=== PATIENT | female | born 1950 | race Caucasian/White ===

== ENCOUNTER 2016-11-05 11:51 | Emergency (ER) | payer MEDICAID, OTHER ==
[~2016-11-05] VITALS: Ht 152.4 cm; Wt 68.2 kg
[~2016-11-05 11:51] MED LIST: AZIT250T94 PO; UDROBDM PO
[2016-11-05] MEDS ORDERED: SOD CHLORIDE 0.9% 500 ML IV STA (12:13)
[2016-11-05] MEDS ORDERED: KETOROLAC 15 MG INJ IV STA (12:13)
[2016-11-05 12:15] VITALS: Ht 152.4 cm; Wt 68.2 kg
[2016-11-05] MEDS ORDERED: LORAZEPAM 2 MG INJ IV ONE (12:30)
--- NOTE | 2016-11-05 14:03 | RADRPT ---
PROCEDURE: XR Chest. CLINICAL INDICATION: trauma TECHNIQUE: Single frontal chest x-ray. COMPARISON: None. FINDINGS: There is minimal prominence of the lung interstitium likely minimal chronic changes.. The heart is not enlarged. Artifact from brassiere, safety pin and ECG leads are projected over the chest. Calc ification in the aortic arch. Degenerative changes in thoracic spine.. IMPRESSION: 1. There is no acute cardiopulmonary process. RPTAT: HJES .Richard Botello MD, MD Date Time Electronically viewed and signed by .Richard Botello MD, MD on 11/05/2016 14:03 .S/
--- NOTE | 2016-11-05 14:05 | RADRPT ---
PROCEDURE: Pelvis x-ray CLINICAL INDICATION: trauma TECHNIQUE: Single AP view of the pelvis performed. COMPARISON: None FINDINGS: Normal mineralization, architecture and alignment. No fracture or osseous lesion identified. There are no significant degenerative changes. Unremarkable soft tissues. IMPRESSION: No acute fracture or subluxation. RPTAT:AAJJ Paul Willis Physician Date Time Electronically viewed and signed by Paul Willis Physician on 11/05/2016 14:05 LUX/
--- NOTE | 2016-11-05 14:06 | RADRPT ---
PROCEDURE: XR left shoulder. CLINICAL INDICATION: trauma TECHNIQUE: AP, Internal and external rotation views of the left shoulder were performed. COMPARISON: None. FINDINGS: There is normal osseous mineralization and alignment. No acute fracture or osseous lesion is identified. There are normal joints without evidence of arthritis or dislocation. Minimal degenerative change of the acromioclavicular joint. The soft tissues are unremarkable. IMPRESSION: Unremarkable left shoulder. RPTAT:AAJJ Physician Vannessa Date Time Electronically viewed and signed by Physician Vannessa on 11/05/2016 14:06 LUX/
--- NOTE | 2016-11-05 14:21 | RADRPT ---
PROCEDURE: CT Brain without contrast. CLINICAL INDICATION: Fall. Intracranial hemorrhage. TECHNIQUE: A multiplanar CT of the brain was performed on a CT scanner utilizing axial imaging fro m the skull base through the vertex without IV contrast. The CTDIvol is 44.77 mGy and the DLP is 63 0.20 mGycm. One or more of the following dose reduction techniques were utilized: Automated exposu re control, adjustment of the mA and/or kV according to patient size, use of iterative reconstructio n technique. COMPARISON: Rule FINDINGS: No evidence of intracranial hemorrhage or abnormal extra-axial fluid collection. The brain parenchyma is normal attenuation morphology with preservation of byrne white differentiatio n and age appropriate size of the ventricles and subarachnoid spaces. The posterior fossa contents, brainstem, craniocervical junction, orbits, pituitary axis, paranasal sinuses, mastoid air cells, and calvarium are unremarkable. IMPRESSION: 1. No intracranial hemorrhage or acute intracranial. RPTAT:AAJJ Physician Vannessa Date Time Electronically viewed and signed by Physician Vannessa on 11/05/2016 14:21 LUX/
--- NOTE | 2016-11-05 14:24 | RADRPT ---
PROCEDURE: XR right shoulder. CLINICAL INDICATION: trauma TECHNIQUE: AP Internal and external rotation views of the right shoulder were performed. COMPARISON: None. FINDINGS: There is normal osseous mineralization and alignment. No acute fracture or osseous lesion is identified. Mild degenerative changes of the AC joint are not ed. The glenohumeral joint is unremarkable. The soft tissues are unremarkable. IMPRESSION: Unremarkable right shoulder. RPTAT:AAJJ Physician Vannessa Date Time Electronically viewed and signed by Physician Vannessa on 11/05/2016 14:24 LUX/
[2016-11-05 14:41] LABS: BASOPHILS % 0.3 % (0.0-2.0); EOSINOPHILS # 0.1 10^3/ul (0.0-0.5); EOSINOPHILS % 0.6 % (0.0-7.0); HEMATOCRIT 37.7 % (37.0-47.0); HEMOGLOBIN 12.9 g/dl (12.0-16.0); LYMPHOCYTES # 1.6 10^3/ul (0.8-2.9); LYMPHOCYTES % 14.9 % (15.0-51.0); MEAN CORPUSCULAR HEMOGLOBIN 30.5 pg (29.0-33.0); MEAN CORPUSCULAR HGB CONC 34.2 g/dl (32.0-37.0); MEAN PLATELET VOLUME 9.1 fl (7.4-10.4); MONOCYTE # 0.5 10^3/ul (0.3-0.9); MONOCYTES % 4.7 % (0.0-11.0); NEUTROPHIL # 8.6 10^3/ul (1.6-7.5); NEUTROPHILS % 79.5 % (39.0-77.0); PLATELET COUNT 215 10^3/UL (140-440); RED BLOOD COUNT 4.23 10^6/ul (4.20-5.40); RED CELL DISTRIBUTION WIDTH 12.8 % (11.5-14.5); UNCORRECTED WBC 10.8 10^3/ul (4.8-10.8); WHITE BLOOD COUNT 10.8 10^3/ul (4.8-10.8)
--- NOTE | 2016-11-05 14:42 | RADRPT ---
PROCEDURE: CT Cervical Spine without contrast. CLINICAL INDICATION: Trauma. Neck pain. TECHNIQUE: A CT of the cervical spine was performed on a CT scanner utilizing thin section axial images from the skull base through the thoracic inlet. Sagittal and coronal reformatted images were made. The CTDIvol is 22.17 mGy and the DLP is 454.36 mGycm. Automated exposure control, adjustment of the mA and/or kV according to patient size, use of iterative reconstruction technique. COMPARISON: No prior studies are available for comparison. FINDINGS: Reversal of the normal cervical lordosis. No vertebral body subluxation is seen. No fracture is evid ent. C2-3: The disc is normal in height. No significant disk bulge or protrusion is evident. There is no central canal stenosis or foraminal narrowing. C3-4: The disc is normal in height. Posterior spondylitic ridging and endplate sclerosis asymmetric to the right with bilateral uncinate process hypertrophy. Mild anterior endplate spurring. Mild ri ght foraminal stenosis. No significant disk bulge or protrusion is evident. No left foraminal or evelin tral canal stenosis. C4-5: The disc is normal in height. Subchondral endplate sclerosis and uncinate process hypertrophy asymmetric to the right resulting in mild right foraminal stenosis. Moderate right facet joint arth ropathy. No central canal or left foraminal stenosis. No disk bulge or protrusion. C5-6: The disc is normal in height. Degenerative endplate sclerosis, endplate spurring and posterior spondylitic ridging with right uncinate process hypertrophy asymmetric to the right resulting in mi ld right foraminal stenosis. No significant disk bulge or protrusion is evident. No left foraminal o r central canal stenosis. C6-7: The disc is normal in height. Degenerative endplate sclerosis, anterior endplate spurring and posterior spondylitic ridging with right uncinate process hypertrophy. No significant disk bulge o r protrusion is evident. There is no central canal stenosis or foraminal narrowing. C7-T1: The disc is normal in height. No significant disk bulge or protrusion is evident. There is no central canal stenosis or foraminal narrowing. The lung apices are clear. No paravertebral soft tissue abnormality is seen. IMPRESSION: 1. No fracture or dislocation. No soft tissue abnormality. 2. Mild multilevel degenerative endplate sclerosis and spondylosis resulting in mild multilevel of r ight foraminal stenosis as described above. No central canal or left foraminal stenosis at any leve l. RPTAT:AAJJ Paul Willis Physician Date Time Electronically viewed and signed by Paul Willis Physician on 11/05/2016 14:42 LUX/
[2016-11-05] MEDS ORDERED: NAPR-260 PO (14:43)
[2016-11-05 14:45] LABS: CONDITION 1
--- NOTE | 2016-11-05 14:50 | ERD ---
ER Documentation Chief Complaint Date/Time DATE: 11/05/16 TIME: 14:46 Chief Complaint BROUGHT IN VIA EMS DUE TO FALL BY STEPPING ON DOG HPI 65-year-old woman brought in by EMS after ground-level fall due to tripping over a small dog. She complains of neck and back pain as well as bilateral shoulder pain. Patient was ambulatory at the scene and denied neurologic deficits. She has had no paresis or paresthesias, no chest pain or shortness of breath, no loss of consciousness. Per protocol patient was placed in a rigid cervical spine collar and transported here without difficulty. ROS All systems reviewed and are negative except as per history of present illness. Medications Home Meds Active Scripts Naproxen* (Naprosyn*) 500 Mg Tablet, 500 MG PO BID Y for PAIN AND/OR INFLAMMATION, #15 TAB Prov:MARJORIE LEE MD 11/05/16 Allergies Allergies: Coded Allergies: No Known Allergy (Unverified , 11/05/16) PMhx/Soc Arthritis, anxiety Hx Alcohol Use: No Hx Substance Use: No Hx Tobacco Use: No Smoking Status: Never smoker FmHx Family History: No diabetes Physical Exam Vitals Vital Signs Date Time Temp Pulse Resp B/P Pulse Ox O2 Delivery O2 Flow Rate FiO2 11/05/16 15:21 89 18 134/70 99 Room Air 11/05/16 12:15 98.5 82 18 136/94 97 Physical Exam GENERAL: Well-developed, well-nourished, severely anxious, neck is secure in a rigid cervical spine collar HEENT: Moist mucous membranes, pink conjunctiva, no cervical spine tenderness or step-off deformities, no goiter, no jaundice or icterus, extraocular movements intact without pain. No submandibular induration, and no pharyngeal erythema NEURO: Alert and oriented 3, cranial nerves II through XII intact bilaterally, pupils equal round reactive to light, no focal deficits or facial asymmetry, sensation intact distally Strength 5/5 in upper and lower extremities bilaterally CARDIAC: Regular rate and rhythm, no murmurs rubs or gallops LUNGS: Clear bilaterally no wheezing crackles or stridor ABDOMEN: Soft nontender, no guarding, no rigidity, no rebound, no psoas sign no obturator sign. Normoactive bowel sounds SKIN: Warm and dry to touch, no abrasions, contusions, or hematomas, no lacerations, no ecchymosis, no target lesions, and without ulcers EXTREMITIES: No clubbing cyanosis or edema, calves are bilaterally symmetrical, no Homans sign, no popliteal cord sign. Distal pulses equal and bilateral PSYCH: Severely anxious Result Diagram: 11/05/16 1430 11/05/16 1430 Results 24 hrs Laboratory Tests Test 11/05/16 14:30 Alanine Aminotransferase (ALT/SGPT) 35IU/L Albumin 3.9g/dl Albumin/Globulin Ratio 1.14 Alkaline Phosphatase 100IU/L Anion Gap 16 Aspartate Amino Transf (AST/SGOT) 24IU/L Basophils # 0.010^3/ul Basophils % 0.3% Blood Urea Nitrogen 15mg/dl Calcium Level 9.2mg/dl Carbon Dioxide Level 25mmol/L Chloride Level 106mmol/L Creatinine 0.70mg/dl Direct Bilirubin 0.00mg/dl Eosinophils # 0.110^3/ul Eosinophils % 0.6% Globulin 3.40g/dl Glucose Level 151mg/dl Hematocrit 37.7% Hemoglobin 12.9g/dl Indirect Bilirubin 0.3mg/dl Lipase 106U/L Lymphocytes # 1.610^3/ul Lymphocytes % 14.9% Mean Corpuscular Hemoglobin 30.5pg Mean Corpuscular Hemoglobin Concent 34.2g/dl Mean Corpuscular Volume 89.0fl Mean Platelet Volume 9.1fl Monocytes # 0.510^3/ul Monocytes % 4.7% Neutrophils # 8.610^3/ul Neutrophils % 79.5% Nucleated Red Blood Cells # 0.010^3/ul Nucleated Red Blood Cells % 0.0/100WBC Platelet Count 27823^3/UL Potassium Level 3.9mmol/L Red Blood Count 4.2310^6/ul Red Cell Distribution Width 12.8% Sodium Level 143mmol/L Total Bilirubin 0.3mg/dl Total Protein 7.3g/dl Troponin I < 0.012ng/ml White Blood Count 10.810^3/ul Current Medications Medications (Trade) Dose Ordered Sig/Alexi Route PRN Reason Start Time Stop Time Status Last Admin Dose Admin Lorazepam (Ativan) 0.5 mg ONCE ONCE IV 11/05/16 12:30 11/05/16 12:31 DC 11/05/16 13:14 Ketorolac Tromethamine 15 mg 15 mg ONCE STAT IV 11/05/16 12:13 11/05/16 12:17 DC 11/05/16 13:14 Sodium Chloride (NS) 500 ml @ 500 mls/hr Q1H STAT IV 11/05/16 12:13 11/05/16 13:12 DC 11/05/16 12:13 Procedures/MDM IV line was established patient was placed on hat presser rhythm strip revealed a sinus rhythm at about 70 bpm with upright P and T waves. EKG performed, read by me: 68 bpm, normal sinus rhythm, normal axis, no acute ST segment changes, narrow QRS complex, with good R-wave progression in precordial leads. I administered 500 cc normal saline intravenously, lorazepam 0.5 mg IV for severe anxiety, Toradol 15 mg IV with good pain control. One AP view of the chest performed, read by me reveals no acute infiltrates, normal mediastinum, sharp costophrenic and cardiac borders, no air under the diaphragm. Otherwise unremarkable chest x-ray. CT scan of the brain was negative for acute bleed mass or shift. CT scan of the cervical spine was performed and was negative for acute fracture or dislocation X-ray Pelvis 1V Interpreted by me: Bones: No fracture Joints: No dislocation Foreign body: None X-ray right shoulder 3V Interpreted by me: Bones: No fracture Joints: No dislocation Foreign body: None X-ray left shoulder 3V Interpreted by me: Bones: No fracture Joints: No dislocation Foreign body: None Differential diagnoses considered, included but not limited to acute coronary syndrome, pulmonary embolism, aortic dissection, abdominal aortic aneurysm, sepsis, stroke, meningitis, encephalitis, pneumonia, appendicitis, cholecystitis , bowel obstruction, pyelonephritis, nephrolithiasis, cystitis, as well as metabolic, hematologic, and electrolyte abnormalities. As well as abscess, cellulitis, fractures, and dislocations. Patient feels much better at this time, and vital signs are normal, symptoms have improved. I did give strict instructions to return to the ED if symptoms continue or worsen, patient will otherwise follow-up with primary care physician. Patient understood instructions and agreed to plan. Departure Diagnosis: Primary Impression: Fall with no significant injury Encounter type: initial encounter Qualified Code: W19.XXXA - Fall with no significant injury, initial encounter Additional Impressions: Acute neck sprain Encounter type: initial encounter Qualified Code: S13.9XXA - Acute neck sprain, initial encounter Anxiety Condition: Good Patient Instructions: Neck Sprain/Strain, Fall Prevention Referrals: NO PRIMARY,CARE PHYSICIAN (PCP) MARJORIE LEE MD Nov 05, 2016 14:50
[2016-11-05 14:52] LABS: ALBUMIN 3.9 g/dl (3.3-4.9); CHLORIDE 106 mmol/L (97-110); SODIUM 143 mmol/L (135-144)
[2016-11-05 14:53] LABS: POTASSIUM 3.9 mmol/L (3.5-5.1)
[2016-11-05 14:55] LABS: ALANINE AMINOTRANSFERASE 35 IU/L (13-69); ALBUMIN/GLOBULIN RATIO 1.14; ALKALINE PHOSPHATASE 100 IU/L (42-121); ANION GAP 16 (8-16); ASPARTATE AMINO TRANSFERASE 24 IU/L (15-46); BILIRUBIN,INDIRECT 0.3 mg/dl (0-1.1); BILIRUBIN,TOTAL 0.3 mg/dl (0.2-1.3); BLOOD UREA NITROGEN 15 mg/dl (7-20); CALCIUM 9.2 mg/dl (8.4-10.2); CARBON DIOXIDE 25 mmol/L (21-31); GLUCOSE 151 mg/dl (70-220); TOTAL PROTEIN 7.3 g/dl (6.1-8.1)
[2016-11-05 15:07] LABS: TROPONIN-I < 0.012 ng/ml (0.00-0.12)
[2016-11-05 15:21] VITALS: BP 134/70; PULSE 89; RESP 18
== END 2016-11-05 16:41 | disposition home or self-care (01) ==
LOC: MERGE 11:51 → E/R 11:51
DX: S13.9XXA Sprain of joints and ligaments of unspecified parts of neck, initial encounter (principal); F41.9 Anxiety disorder, unspecified; M25.512 Pain in left shoulder; G93.89 Other specified disorders of brain; W01.198A Fall on same level from slipping, tripping and stumbling with subsequent striking against other object, initial encounter; Y92.9 Unspecified place or not applicable
CPT/HCPCS: 70450; 71010; 72125; 72170; 73030; 80053; 83690; 84484; 85025; J1885; J2060; J7040; 36415; 93005; 96374; 96375